=== PATIENT | male | born 1970 | race Caucasian/White ===

== ENCOUNTER → 2022-11-24 12:45 | Outpatient (BNVA) | payer MEDICARE, SELFPAY | PROVIDERS: PCP Family Medicine; Referring Provider Family Medicine; Visit Provider Internal Medicine | DX: E11.9 Type 2 diabetes mellitus without complications (principal); E78.2 Mixed hyperlipidemia; Z86.73 Personal history of transient ischemic attack (TIA), and cerebral infarction without residual deficits; Z87.442 Personal history of urinary calculi; Z79.84 Long term (current) use of oral hypoglycemic drugs | CPT/HCPCS: 80053; 80061; 82044; 82310; 83036; 83721; 83970; 84439; 84443; 84480; 99204 ==

== ENCOUNTER → 2023-03-30 08:10 | Outpatient (BNVA) | payer MEDICARE, SELFPAY | PROVIDERS: PCP Family Medicine; Visit Provider Internal Medicine | DX: E11.9 Type 2 diabetes mellitus without complications (principal); E78.2 Mixed hyperlipidemia; Z79.4 Long term (current) use of insulin; Z79.84 Long term (current) use of oral hypoglycemic drugs; Z86.73 Personal history of transient ischemic attack (TIA), and cerebral infarction without residual deficits | CPT/HCPCS: 36415; 80053; 80061; 82044; 83036; 83721; 99214 ==

== ENCOUNTER → 2023-04-21 13:30 | Outpatient (BNVA) | payer MEDICARE, SELFPAY | PROVIDERS: PCP Family Medicine; Referring Provider Family Medicine; Visit Provider Internal Medicine | DX: R07.9 Chest pain, unspecified (principal); I25.2 Old myocardial infarction; E11.9 Type 2 diabetes mellitus without complications; E78.2 Mixed hyperlipidemia; I10 Essential (primary) hypertension; R55 Syncope and collapse; F17.200 Nicotine dependence, unspecified, uncomplicated | CPT/HCPCS: 93005; 99204 ==

== ENCOUNTER → 2023-08-26 09:05 | Outpatient (BNVA) | payer MEDICARE, SELFPAY | PROVIDERS: PCP Family Medicine; Visit Provider Internal Medicine | DX: E11.9 Type 2 diabetes mellitus without complications (principal); E78.2 Mixed hyperlipidemia; L73.9 Follicular disorder, unspecified; Z79.4 Long term (current) use of insulin; Z79.84 Long term (current) use of oral hypoglycemic drugs | CPT/HCPCS: 99214 ==

== ENCOUNTER → 2023-10-04 11:01 | Outpatient (BNVA) | payer MEDICARE, SELFPAY | PROVIDERS: PCP Family Medicine; Referring Provider Internal Medicine; Visit Provider Nurse Practitioner Family | DX: L73.2 Hidradenitis suppurativa (principal); L98.1 Factitial dermatitis; D48.5 Neoplasm of uncertain behavior of skin; D22.39 Melanocytic nevi of other parts of face; L81.4 Other melanin hyperpigmentation; L57.8 Other skin changes due to chronic exposure to nonionizing radiation | CPT/HCPCS: 11102; 99204 ==

== ENCOUNTER → 2023-11-21 09:50 | Outpatient (BNVA) | payer MEDICARE, SELFPAY | PROVIDERS: PCP Family Medicine; Visit Provider Internal Medicine | DX: E11.9 Type 2 diabetes mellitus without complications (principal); E78.2 Mixed hyperlipidemia; L73.9 Follicular disorder, unspecified; Z79.4 Long term (current) use of insulin; Z79.85 Long-term (current) use of injectable non-insulin antidiabetic drugs; Z79.84 Long term (current) use of oral hypoglycemic drugs; L73.2 Hidradenitis suppurativa; F42.4 Excoriation (skin-picking) disorder; D22.39 Melanocytic nevi of other parts of face; L81.4 Other melanin hyperpigmentation; L57.8 Other skin changes due to chronic exposure to nonionizing radiation; L57.0 Actinic keratosis | CPT/HCPCS: 17000; 99214 ==

== ENCOUNTER → 2024-11-19 14:25 | Outpatient (BNVA) | payer MEDICARE, SELFPAY | PROVIDERS: PCP Family Medicine; Visit Provider Internal Medicine | DX: R07.89 Other chest pain (principal); R06.09 Other forms of dyspnea; E11.9 Type 2 diabetes mellitus without complications; Z79.4 Long term (current) use of insulin; Z79.84 Long term (current) use of oral hypoglycemic drugs; E78.2 Mixed hyperlipidemia; I10 Essential (primary) hypertension; R55 Syncope and collapse; I25.2 Old myocardial infarction; Z87.891 Personal history of nicotine dependence; R07.9 Chest pain, unspecified | CPT/HCPCS: 99214 ==

== ENCOUNTER 2024-12-19 05:57 | Outpatient (CLI) | payer MEDICARE, SELFPAY ==
--- NOTE | 2024-12-19 | ECG_ITS ---
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 Interpretive Statements Lung unchanged pre/post procedure; Intraprocedure shortess of breath; Symptoms resoled by discharge PROCEDURE: At the baseline, the EKG revealed normal sinus rhythm with a normal ST Ts. The baseline heart was 77 bpm with a blood pressue of 149/83 mm of Hg Lexiscan was infused over a period of 20 seconds. A total of 0.4 milligrams of Lexiscan was infused. The stress phase was continued for a total of 5 minutes. Heart rate at the end of the stress phase was 89 bpm with a blood pressure 149/82 mm of Hg. The EKG at the peak infusion revealed no significant changes. Sestamibi was injected 20 seconds after the Lexiscan infusion. Heart rate at the end of the recovery phase was 86 bpm with a blood pressure of 140/80 mm of Hg. CONCLUSION: 1. No significant EKG changes with the LexiScan infusion 2. No LexiScan induced chest pain or cardiac arrhythmia 3. Normal blood pressure and heart rate response 4. Sestamibi/sestamibi perfusion scan pending; see separate report. Electronically Signed On 12-21-2024 22:29:16 CDT by Justin Carias M.D. [email or web address]
--- NOTE | 2024-12-19 06:35 | NMCV_ITS ---
NM cande perf SPECT r/s* [id number] Sorin Deshpande Age: 54 Gender: M : 1970 Exam Date: 12/19/2024 07:18 Ordering Phys: Ricky Barlow M.D ([email or web address]) Technologist: TRA Lombardo Exam Location: [facility] Indications: cp STRESS TEST [facility] IMAGE PROTOCOL Rest/Stress 1 Lexiscan Day Radiopharmaceutical Dose (mCi) Administration Site Administered by Rest: Tc-99m 10.7 IV TRA Bass Sestamibi Stress:Tc-99m 33 IV TRA Lombardo Sestamianne Rest: 19-Dec-2024 60 Discovery 630 Stress: 19-Dec-2024 30 Discovery 630 0.4mg Lexiscan. Images obtained in supine and prone position. SPECT RESULTS Technical Quality: Good Raw Data Analysis: Normal Image Corrections: No attenuation or motion correction applied Summed Stress Score: 2 Summed Rest Score: 11 Summed Difference Score: 0 PERFUSION FINDINGS Small to moderate area of minimally decreased tracer uptake was noted in the basal, mid nferolateral and apical lateral segments. No significant reversibility was noted in these regions.. FUNCTIONAL RESULTS (calculated via Gated SPECT) Stress Image LV EF (%): 63 Stress EDV (mL):106 TID: 0.98 Stress ESV (mL):39 FUNCTIONAL FINDINGS: Segmental wall motion analysis revealing no gross wall motion abnormalities IMPRESSIONS 1. Myocardial perfusion imaging revealing small to moderate area of slightly decreased persistent tracer uptake involving the inferolateral and apical lateral regions suggestive of myocardial scarring versus attenuation artifact in the distribution of the left circumflex artery 2. Normal LV ejection fraction of 63% 3. LV wall motion analysis revealing no gross wall motion abnormalities. 4. Normal LV volume. Low probability for coronary ischemia, based on the above findings Dr Justin Carias MD FACC (Electronically Signed) Final Date: 19 December 2024 09:11 S
[2024-12-19 06:36] VITALS: BMI 43.2
[2024-12-19] MEDS: regadenoson 0.4 Mg/5 ml Syringe IVP (08:05)
[2024-12-19 08:17] VITALS: BP 140/80; PULSE 91
== END 2024-12-19 05:58 | disposition home or self-care (01) ==
LOC: CDL 05:58
PROVIDERS: PCP Family Medicine; Visit Provider Internal Medicine
DX: R07.9 Chest pain, unspecified (principal); R93.1 Abnormal findings on diagnostic imaging of heart and coronary circulation; E11.8 Type 2 diabetes mellitus with unspecified complications; E11.42 Type 2 diabetes mellitus with diabetic polyneuropathy; Z79.84 Long term (current) use of oral hypoglycemic drugs; E11.9 Type 2 diabetes mellitus without complications; E78.2 Mixed hyperlipidemia; L73.9 Follicular disorder, unspecified
CPT/HCPCS: 36415; 78452; 93017; 96374; 99203; 99214; A9500; J2785